=== PATIENT | female | born 2005 | race Caucasian/White ===

== ENCOUNTER 2024-12-23 16:25 | Emergency (ER) | payer OTHER ==
[~2024-12-23] VITALS: Ht 157.5 cm; Wt 103.2 kg
[2024-12-23 17:20] LABS: BASO # 0.0 10^3/uL (0.0-0.2); BASO % 0.3 % (0.0-1.0); EOS # 0.1 10^3/uL (0.0-0.5); EOS % 1.0 % (0.0-3.0); LYMPH # 3.5 10^3/uL (1.5-5.0); LYMPH % 30.9 % (24.0-44.0); MONO # 0.5 10^3/uL (0.0-0.8); MONO % 4.5 % (2.0-8.0); NEUTROPHILS # 7.2 10^3/uL (1.5-8.5); NEUTROPHILS % 62.9 % (36.0-66.0); PLATELET COUNT, AUTOMATED 324 10^3/uL (150-450)
[2024-12-23 17:27] LABS: KETONE, URINE AUTO RFX NEGATIVE (NEGATIVE); LEUKOCYTE ESTERASE UR AUTO RFX NEGATIVE (NEGATIVE); MUCUS, URINE RFX SMALL (NEGATIVE); NITRITE, URINE AUTO RFX NEGATIVE (NEGATIVE); RBC, URINE AUTO RFX TNTC /HPF (0-3); SQUAM EPITHELIAL CELL UR AURFX 2 /HPF (0-6); WBC, URINE AUTO RFX 6 /HPF (0-3)
[2024-12-23] MEDS ORDERED: MULTTAB20 PO (17:45)
[2024-12-23] MEDS ORDERED: HOME MED LIST COMPLETE! XX SCH (17:45)
[2024-12-23 19:28] VITALS: BP 134/68; TEMP 97.4; O2SAT 100
== END 2024-12-23 19:34 | disposition home or self-care (01) ==
LOC: M ED 16:25
DX: O20.0 Threatened abortion (principal); Z3A.00 Weeks of gestation of pregnancy not specified; Z79.810 Long term (current) use of selective estrogen receptor modulators (SERMs)

== ENCOUNTER → 2024-12-26 | Outpatient (CLI) | payer OTHER ==
[~2024-12-26] MED LIST: MULTTAB20 PO
== END ==
LOC: M PLALAB 09:50
PROVIDERS: ATTEND Emergency Medicine
DX: O20.0 Threatened abortion (principal); Z3A.00 Weeks of gestation of pregnancy not specified

== ENCOUNTER 2025-03-25 13:18 | Emergency (ER) | payer BC, OTHER ==
[~2025-03-25] VITALS: Ht 160 cm; Wt 113.3 kg
[2025-03-25 15:46] LABS: BASO # 0.0 10^3/uL (0.0-0.2); BASO % 0.2 % (0.0-1.0); EOS # 0.1 10^3/uL (0.0-0.5); EOS % 0.9 % (0.0-3.0); LYMPH # 3.8 10^3/uL (1.5-5.0); LYMPH % 29.9 % (24.0-44.0); MONO # 0.5 10^3/uL (0.0-0.8); MONO % 4.1 % (2.0-8.0); NEUTROPHILS # 8.3 10^3/uL (1.5-8.5); NEUTROPHILS % 64.6 % (36.0-66.0); PLATELET COUNT, AUTOMATED 379 10^3/uL (150-450)
[2025-03-25 16:11] LABS: KETONE, URINE AUTO RFX TRACE mg/dL (NEGATIVE); LEUKOCYTE ESTERASE UR AUTO RFX NEGATIVE (NEGATIVE); MUCUS, URINE RFX SMALL (NEGATIVE); NITRITE, URINE AUTO RFX NEGATIVE (NEGATIVE); RBC, URINE AUTO RFX 1 /HPF (0-3); SQUAM EPITHELIAL CELL UR AURFX 1 /HPF (0-6); WBC, URINE AUTO RFX 1 /HPF (0-3)
[2025-03-25 16:14] LABS: ALT/SGPT 33 U/L (7.0-40); AST/SGOT 23 U/L (<34); CALCIUM LEVEL 9.3 MG/DL (8.5-10.1); CARBON DIOXIDE LEVEL 22 MMOL/L (20-31); CHLORIDE LEVEL 105 MMOL/L (98-107); CREATININE FOR GFR 0.50 MG/DL (0.55-1.30); GLOMERULAR FILTRATION RATE > 90.0 (>60); POTASSIUM SERUM 4.1 MMOL/L (3.5-5.1); SODIUM LEVEL 141 MMOL/L (136-145)
[2025-03-25 16:18] LABS: HCG, SERUM QUANTITATIVE 3668.4 MIU/ML (<4.2)
[2025-03-25 17:11] VITALS: BP 145/63; TEMP 98.8; O2SAT 98
== END 2025-03-25 17:12 | disposition home or self-care (01) ==
LOC: M ED 13:18
DX: N93.9 Abnormal uterine and vaginal bleeding, unspecified (principal); Z79.810 Long term (current) use of selective estrogen receptor modulators (SERMs)

== ENCOUNTER → 2025-03-27 | Outpatient (CLI) | payer BC, OTHER | LOC: M PLALAB 13:10 | DX: N93.9 Abnormal uterine and vaginal bleeding, unspecified (principal) ==

== ENCOUNTER → 2025-04-01 | Outpatient (CLI) | payer BC, OTHER ==
[2025-04-01 19:22] LABS: HCG, SERUM QUANTITATIVE 188.8 MIU/ML (<4.2)
[2025-04-01 19:29] LABS: LUTEINIZING HORMONE < 0.1 mIU/ML; PROLACTIN 14.56 NG/ML
[2025-04-01 19:30] LABS: ESTRADIOL 77.4 PG/ML; FREE T4 0.98 NG/DL (0.83-1.43)
[2025-04-04 07:13] LABS: DEHYDROEPIANDROSTERONE SULFATE 195 mcg/dL (44-286)
== END ==
LOC: M PLALAB 15:09
PROVIDERS: ATTEND Nurse Practitioner Family
DX: N96 Recurrent pregnancy loss (principal)